=== PATIENT | male | born 1995 | race Caucasian/White ===

== ENCOUNTER 2016-08-24 20:35 | Emergency (ER) | payer BC ==
[~2016-08-24] VITALS: Ht 177.8 cm; Wt 86.0 kg
[2016-08-24 20:50] VITALS: BP 102/53; PULSE 118; TEMP 36.5; O2SAT 96; Ht 177.8 cm; Wt 86.0 kg
--- NOTE | 2016-08-24 21:45 | DIAGNOSTIC IMAGING REPORT ---
LEFT ANKLE MIN 3 VIEWS ROUTINE CLINICAL HISTORY: Left ankle pain status post trauma COMPARISON: None. DISCUSSION: No acute fractures are visualized. There are 2 corticated densities located adjacent to the distal fibular tip. These are felt to be old. There is lateral soft tissue swelling. The ankle mortise appears intact on these nonstress views. There is a small talar beak. IMPRESSION: 1. Old avulsion fragments adjacent the lateral malleolar tip 2. No acute fractures or dislocations 3. Lateral soft tissue swelling. Electronically signed by: Sean Harding M.D. 08/24/2016 9:43 PM Dictated Date/Time: 08/24/2016 9:37 PM
--- NOTE | 2016-08-24 22:12 | EMERGENCY ROOM VISIT NOTE ---
ED Visit Note First contact with patient: 21:02 Chief Complaint: LEFT Ankle Problems History of Present Illness: Patient is a 21-year-old male who presents to the emergency department by private vehicle for evaluation of his LEFT ankle injury. The patient presents after twisting his ankle awkwardly while walking on concrete. He reports immediate pain and swelling to the lateral surface of his ankle which has progressively worsened. He denies any numbness or tingling into the toes. He reports increasing pain with ambulation. He reports no history of fracture to the affected ankle, but reports that he has had multiple sprains. He rates his current discomfort as a 6/10. He is tried nothing for symptoms of pain. The patient admits to drinking alcohol today. He denies any associated foot pain, calf pain, or knee pain. Medications: No current medications. Allergies: Loracarbef PMH: No pertinent past medical history. SHx: Patient is a 21-year-old male [employer] student who lives with roommates. ROS: All pertinent positive and negative review of systems are appropriately documented in the History of Present Illness. Physical Exam: VITAL SIGNS - Vital signs and nursing notes were reviewed. GENERAL - 21-year-old male appearing his stated age and in noticeable discomfort throughout the exam. MUSCULOSKELETAL - LEFT ankle with moderate edema overlying the lateral malleolus. No erythema or ecchymosis. Moderate tenderness to palpation appreciated over the lateral malleolus. No tenderness extending into the foot or up the leg. +3/5 strength appreciated LEFT versus right secondary to patient discomfort. Pt with decreased AROM at affected joint secondary to patient discomfort. ANTERIOR DRAWER TEST: Positive reproduction of pain. EVERSION TEST: Unremarkable. INVERSION TEST: Positive reproduction of pain. SQUEEZE TEST: Unremarkable. NEUROLOGIC/VASCULAR - Neurovascularly intact distally with +3/5 dorsalis pedis pulses palpated bilaterally. Normal sensation to light and sharp touch appreciated distally. IMAGING: LEFT ANKLE MIN 3 VIEWS ROUTINE CLINICAL HISTORY: Left ankle pain status post trauma COMPARISON: None. DISCUSSION: No acute fractures are visualized. There are 2 corticated densities located adjacent to the distal fibular tip. These are felt to be old. There is lateral soft tissue swelling. The ankle mortise appears intact on these nonstress views. There is a small talar beak. IMPRESSION: 1. Old avulsion fragments adjacent the lateral malleolar tip 2. No acute fractures or dislocations 3. Lateral soft tissue swelling. ED Course: Patient was seen and evaluated by myself. Patient was provided an ice pack for comfort. Patient declined anything for their complaint of pain. X-rays were obtained of the affected ankle. Imaging results as above. Images were discussed and reviewed with the patient who acknowledges understanding. Patient was provided a Gel Ankle Splint and Crutches for their comfort. Patient will utilize [id number]-wekxiqo medications for pain control at home. Patient educated on worrisome symptoms for return visit to the emergency department. Patient with follow-up with their primary care provided in 4-5 days if their symptoms are not improving. Patient discharged to home in good condition. Impression: LEFT Ankle Sprain Discharge Instructions: You have been treated in the Emergency Department for your LEFT Ankle Sprain. For pain control, you can use the following kvrk-phb-sifxhor medicines (if >12 yo): - Regular strength (325mg/tab) Tylenol (acetaminophen) 2 tabs every 4-6 hours as needed. Do not exceed 12 tablets in a 24 hour period. Avoid taking more than 4 grams (4000 mg) of Tylenol per day. This includes any other sources of acetaminophen you may take on a regular basis. - Regular strength (200 mg/tab) Advil (ibuprofen) 1-2 tabs every 4-6 hours as needed. Do not exceed a dose of 3200 mg per day. If this is a recent injury (<24 hrs), ice can be applied to the area of pain for the first 3 days to help decrease pain and inflammation. Please use the crutches and ankle splint until you are able to ambulate without discomfort. You can continue to use the ankle splint for the next 1-2 weeks to help with ankle stability. Follow-up with your primary care provider or Orthopedic Surgeon in 4-5 days if your symptoms are not improving despite the treatment plan outlined above. Return to the Emergency Department if your current symptoms worsen despite treatment course outlined above, or if you develop any of the following symptoms : intractable pain despite aforementioned treatment course or new onset of numbness or tingling of the foot. Problem List Medical Problems: (1) Bronchitis Status: Resolved Current/Historical Medications No Active Prescriptions or Reported Meds Allergies Coded Allergies: Loracarbef (Verified Allergy, Unknown, Unknown, 08/24/16) Vital Signs Date Time Temp Pulse Resp B/P Pulse Ox O2 Delivery O2 Flow Rate FiO2 08/24/16 20:50 36.5 118 18 102/53 96 Room Air Departure Information Impression Primary Impression: Left ankle sprain Dispostion Home / Self-Care Condition GOOD Prescriptions No Active Prescriptions or Reported Meds Referrals No Doctor, Assigned (PCP) Patient Instructions Ankle Sprain, [facility] Additional Instructions You have been treated in the Emergency Department for your LEFT Ankle Sprain. For pain control, you can use the following peoj-ukm-nsegtuj medicines (if >12 yo): - Regular strength (325mg/tab) Tylenol (acetaminophen) 2 tabs every 4-6 hours as needed. Do not exceed 12 tablets in a 24 hour period. Avoid taking more than 4 grams (4000 mg) of Tylenol per day. This includes any other sources of acetaminophen you may take on a regular basis. - Regular strength (200 mg/tab) Advil (ibuprofen) 1-2 tabs every 4-6 hours as needed. Do not exceed a dose of 3200 mg per day. If this is a recent injury (<24 hrs), ice can be applied to the area of pain for the first 3 days to help decrease pain and inflammation. Please use the crutches and ankle splint until you are able to ambulate without discomfort. You can continue to use the ankle splint for the next 1-2 weeks to help with ankle stability. Follow-up with your primary care provider or Orthopedic Surgeon in 4-5 days if your symptoms are not improving despite the treatment plan outlined above. Return to the Emergency Department if your current symptoms worsen despite treatment course outlined above, or if you develop any of the following symptoms : intractable pain despite aforementioned treatment course or new onset of numbness or tingling of the foot. Problem Qualifiers Primary Impression: Left ankle sprain Encounter type: initial encounter Involved ligament of ankle: unspecified ligament Qualified Codes: S93.402A - Sprain of unspecified ligament of left ankle, initial encounter
== END 2016-08-24 22:38 | disposition home or self-care (01) ==
LOC: C.EDB 20:36 → C.EDD 22:38
DX: S93.402A Sprain of unspecified ligament of left ankle, initial encounter (principal); X50.1XXA Overexertion from prolonged static or awkward postures, initial encounter